=== PATIENT | male | born 1990 | race Two or more races ===

== ENCOUNTER 2017-01-25 08:20 | Day surgery (SDC) | payer OTHER ==
--- NOTE | 2017-01-19 13:33 | HISTORY AND PHYSICAL E ---
History and Physical NAME: GUILLAUME ABRAMS : 1990 AGE: 27Y ADMITTED: 01/25/2017 ROOM: HISTORY OF PRESENT ILLNESS: The patient presented to us regarding fatty liver, back pain. PAST MEDICAL HISTORY: He does have history vomiting, blood in the stool. SOCIAL HISTORY: Does not smoke, does not drink. FAMILY HISTORY: Sister has diabetes. REVIEW OF SYSTEMS: CARDIAC: High cholesterol. ENDOCRINE: Weight gain. GASTROINTESTINAL: Reflux, vomiting. ONCOLOGY/HEMATOLOGY: Negative. INFECTIOUS DISEASE: The patient does have history of MRSA. PSYCHIATRIC: He does have mild anxiety. PHYSICAL EXAMINATION: GENERAL: Age 26. VITAL SIGNS: Blood pressure 112/70, pulse 80, respirations 18, temperature 98. HEAD, EARS, EYES, NOSE AND THROAT: Normal. ABDOMEN: Soft. NEUROLOGIC: Exam negative. CHIEF COMPLAINT: Vomiting, blood in the stool. PLAN: 1. CBC, thyroid function. 2. Upper endoscopy scheduled for 01/25/2017. DICTATING PHYSICIAN: CHAD CHRIS M.D. [id number] [id number] Y#: [id number] ID: [id number] JOB#: [id number] ACCT: [id number] cc:CHAD CHRIS M.D. >
[~2017-01-25 08:20] MED LIST: EPINEPHRINE INJ 1 MG/10 ML DISP.SYRIN ONE; FENTANYL CITRATE INJ/PF 100 MCG/2 ML AMPUL ONE; FLUMAZENIL INJ 0.5 MG/5 ML VIAL ONE; GLYCOPYRROLATE INJ 0.4 MG/2 ML VIAL ONE; NALOXONE HCL INJ/PF 0.4 MG/1 ML SDV ONE; ONDANSETRON HCL INJ/PF 4 MG/2 ML SDV ONE
[2017-01-25] MEDS: MIDAZOLAM 2 MG/2 ML INJ ONE ×2 (09:05→09:11)
[2017-01-25 10:16] VITALS: BP 109/69
[2017-01-25 10:48] LABS: HEMATOCRIT 41.3 % (37.9-51.0); HEMOGLOBIN 14.1 g/dL (13.5-17.0); MEAN CORPUSCULAR HEMOGLOBIN 29.3 pg (27.0-33.4); MEAN CORPUSCULAR HGB CONC 34.1 g/dL (32.0-36.0); MEAN CORPUSCULAR VOLUME 86 fl (80-97); RED BLOOD COUNT 4.81 10^6/uL (4.35-5.55); WHITE BLOOD COUNT 6.1 10^3/uL (4.0-10.5)
[2017-01-25 11:05] LABS: ALANINE AMINOTRANSFERASE 82 U/L (21-72); ALBUMIN 4.2 g/dL (3.5-5.0); ALKALINE PHOSPHATASE 64 U/L (38-126); ANION GAP 9 (5-19); ASPARTATE AMINO TRANSFERASE 52 U/L (17-59); BILIRUBIN,DIRECT 0.4 mg/dL (0.0-0.4); BLOOD UREA NITROGEN 10 mg/dL (7-20); CALCIUM 9.5 mg/dL (8.4-10.2); CARBON DIOXIDE 31 mmol/L (22-30); CHLORIDE 101 mmol/L (98-107); CREATININE RESULT 0.95 mg/dL (0.52-1.25); GLUCOSE 80 mg/dL (75-110); POTASSIUM 4.4 mmol/L (3.6-5.0); SODIUM 141.1 mmol/L (137-145); TOTAL PROTEIN 7.5 g/dL (6.3-8.2)
[2017-01-25 11:09] LABS: ABSOLUTE EOSINOPHILS# (MANUAL) 0.3 10^3/uL (0.0-0.6); BAND NEUTROPHILS % (MANUAL) 1 % (3-5); BASOPHILS % (MANUAL) 2 % (0-2); EOSINOPHILS % (MANUAL) 5 % (0-6); LYMPHOCYTES % (MANUAL) 24 % (13-45); TOTAL CELLS COUNTED 100
[2017-01-25 11:10] LABS: RBC MORPHOLOGY COMMENT NORMO-CYTIC/CHROMIC; TOXIC GRANULATION SLIGHT
--- NOTE | 2017-01-25 12:45 | DISCHARGE SUMMARY E ---
Discharge Summary NAME: GUILLAUME ABRAMS : 1990 AGE: 27Y ADMITTED: 01/25/2017 DISCHARGED: 01/25/2017 HISTORY AND HOSPITAL COURSE: This 27-year-old male presents with vomiting, abdominal pain. Question GI bleed. Upper endoscopy shows esophageal ulcer, small (3 mm), benign looking, and gastritis. DISCHARGE PLAN: 1. Baseline lab studies. 2. Start the patient on omeprazole 20 mg p.o. b.i.d. 3. Consider repeat endoscopy in 3 months for further evaluation of the distal esophageal ulcer. . DICTATING PHYSICIAN: CHAD CHRIS M.D. [id number] [id number] [facility]#: [id number] ID: [id number] JOB#: [id number] ACCT: [id number] cc:[facility] CHAD CHRIS M.D. >
--- NOTE | 2017-01-25 12:56 | OPERATIVE REPORT E ---
Operative Report NAME: GUILLAUME ABRAMS : 1990 AGE: 27Y DATE OF SURGERY: 01/25/2017 ROOM: PREOPERATIVE DIAGNOSES: 1. Abdominal pain. 2. Reflux. 3. Question GI bleed. POSTOPERATIVE DIAGNOSES: 1. Small esophageal ulcer 3 mm distal esophagus. 2. Mild esophagitis. 3. Mild gastritis. 4. Small 2 mm soft mucosal polyp in the gastric antrum with mild gastritis. SURGEON: CHAD CHRIS M.D. ANESTHESIA: Versed 4, fentanyl 50. DESCRIPTION OF PROCEDURE: After adequate sedation, baby scope passed under guided vision, no difficulty. Junction at 35. Small distal esophageal ulcer 3 mm with mild esophagitis. No varices. No bleeding. Gastroscopy: Mild gastritis. Prepyloric polyp 2 mm, benign with mild gastritis. Duodenum: Normal. Descending duodenum normal. PLAN: We asked the patient to stop aspirin, nonsteroidal, starting him on omeprazole 20 p.o. b.i.d. Obtain lab studies. Followup office visit in the next few days. DICTATING PHYSICIAN: CHAD CHRIS M.D. [id number] PHY#: [id number] ID: [id number] JOB#: [id number] ACCT: [id number] cc:CHAD CHRIS M.D. >
== END 2017-01-25 10:24 | disposition home or self-care (01) ==
LOC: END 08:20
PROVIDERS: ATTEND Specialist
PROC: 0DB68ZX Excision of Stomach, Via Natural or Artificial Opening Endoscopic, Diagnostic (ICD-10-PCS; principal; 2017-01-25 09:00)
DX: K21.0 Gastro-esophageal reflux disease with esophagitis (principal); K29.70 Gastritis, unspecified, without bleeding; K31.7 Polyp of stomach and duodenum; K92.1 Melena; R11.10 Vomiting, unspecified; R10.9 Unspecified abdominal pain
CPT/HCPCS: 43239; 36415; 85025; 80053; 88342 ×2; 88305 ×2; J2250; J3010; J2405; J0171; J2310; J3490